=== PATIENT | female | born 1965 | race African-American/Black ===

== ENCOUNTER 2024-05-19 19:33 | Emergency (ER) | payer OTHER ==
[~2024-05-19 19:33] MED LIST: Iopamidol 370 76% 100 ML VIAL ONE
[2024-05-19] MEDS ORDERED: Cefepime 2 GM VIAL ONE (20:08)
[2024-05-19] MEDS ORDERED: Sodium Chloride 0.9% 100 ML ONE (20:08)
[2024-05-19 20:11] LABS: #Basophils Less than 0.03 10x3/uL (0.0-0.2); #Eosinphils Less than 0.03 10x3/uL (0.0-0.7); %Basophils 0.1 % (0.0-1.0); %Eosinophils 0.1 % (0.0-10.0); %Lymphocytes 6.7 % (21.0-51.0); %Monocytes 3.6 % (0.0-10.0); %Neutrophils 88.8 % (42.0-75.0); Hematocrit 42.8 % (36.0-47.0); Hemoglobin 13.9 g/dL (12.0-16.0); Mean Corpuscular HGB CONC 32.5 g/dL (32.0-36.0); Mean Corpuscular Volume 86.1 fL (78.0-98.0); Mean Platelet Volume 9.3 fL (7.4-10.4); Platelet Count 212 10x3/uL (130-400); RBC Distribution Width 13.2 % (11.5-14.5); Red Blood Cell (RBC) Count 4.97 mill/uL (4.20-5.40)
[2024-05-19 20:30] LABS: ALT (SGPT) 15 U/L (8-55); AST (SGOT) 25 U/L (5-34); Albumin 3.3 g/dL (3.5-5.0); Alkaline Phosphatase 77 U/L (40-110); Anion Gap 13 mmol/L (10-20); BUN (Urea Nitrogen) 12 mg/dL (9.8-20.1); Bilirubin, Total 0.7 mg/dL (0.2-1.2); Calc. Creatinine Clearance 0 mL/min (70-130); Calcium 8.1 mg/dL (7.8-10.44); Carbon Dioxide 17 mmol/L (22-29); Chloride 109 mmol/L (98-107); Estimated GFR 63; Glucose 123 mg/dL (70-105); Lipase 17 U/L (8-78); Potassium 3.2 mmol/L (3.5-5.1); Protein, Total 7.3 g/dL (6.0-8.3); Sodium 136 mmol/L (136-145)
[2024-05-19 20:31] LABS: Troponin I Less than 0.010 ng/mL (< 0.028)
[2024-05-19 20:59] LABS: Influenza A by NAA Not Detected (NotDetected); Influenza B by NAA Not Detected (NotDetected); SARS-CoV-2 NAA Rapid Test DETECTED (NotDetected)
[2024-05-19] MEDS ORDERED: Potassium Chloride 20 MEQ TAB ONE (23:01)
== END 2024-05-19 23:38 | disposition home or self-care (01) ==
LOC: ERS 19:33
DX: U07.1 COVID-19 (principal); E87.6 Hypokalemia; R11.2 Nausea with vomiting, unspecified; I10 Essential (primary) hypertension
CPT/HCPCS: 0240U; 71045; 74177; 80053; 83605; 83690; 84484; 85025; 87040; 93005; J0692; J3490; Q9967; 36415; 96374